=== PATIENT | female | born 1985 | race Caucasian/White ===

== ENCOUNTER 2023-10-31 14:24 | Outpatient (CLI) | payer BC, SELFPAY ==
[2023-10-31 16:02] LABS: HIV 1/2 Ab P24 Ag Result Negative (Negative)
[2023-10-31 16:26] LABS: Hepatitis B Surface Antigen Negative (Negative)
[2023-10-31 16:44] LABS: Hepatitis C Virus Antibody Negative (Negative)
[2023-11-01 15:12] LABS: Rapid Plasma Reagin Non-Reactive (NonReactive)
== END 2023-10-31 14:25 | disposition home or self-care (01) ==
LOC: ANHLAB 14:25
PROVIDERS: PCP Obstetrics & Gynecology; Visit Provider Obstetrics & Gynecology
DX: Z20.2 Contact with and (suspected) exposure to infections with a predominantly sexual mode of transmission (principal)
CPT/HCPCS: 36415; 86592; 86703; 86803; 87340; G0432